=== PATIENT | female | born 1955 | race Caucasian/White ===

== ENCOUNTER 2021-08-08 00:28 | Day surgery (SDC) | payer MEDICARE, SELFPAY ==
[2021-07-28 13:05] VITALS: BMI 26.6
[2021-08-08 06:23] VITALS: BP 136/75; PULSE 83; RESP 20; TEMP 37; O2SAT 98; BMI 27.3
[2021-08-08] MEDS: LACTATED RINGERS 1,000 ML 150 ML IV CONT (06:33)
--- NOTE | 2021-08-08 07:08 | WPDANESEPPF ---
Anes - Initial Pre Proc Eval Procedure: Operation Date: 08/08/21 07:30 Proposed Procedures p Screening Colonoscopy - Joseph Carter MD Date/Time: 08/08/21 07:08 Surgeon: Joseph Carter MD Pre Op Diagnosis: neoplasm screening Patient Data Age: 66 Gender: F Height: 1.68 m Weight: 76.9 kg Last Vital Signs Temp 98.6 F 08/08/21 06:23 Pulse 83 08/08/21 06:23 Resp 20 08/08/21 06:23 BP 136/75 08/08/21 06:23 Pulse Ox 98 08/08/21 06:23 Allergies Allergy/AdvReac Type Severity Reaction Status Date / Time Wunzcqe-Ugf-Ejn Reductase Allergy Severe Muscle Pain Verified 08/08/21 06:21 Inhibitor vancomycin Allergy Intermediate Swelling Verified 08/08/21 06:21 Home Medications Medication Instructions Recorded Confirmed Type coenzyme Q10 200 mg capsule 200 mg PO DAILY 04/14/21 07/28/21 History cranberry 400 mg capsule 400 mg PO DAILY 04/14/21 07/28/21 History omega-3 fatty acids 1,000 mg 2,000 mg PO DAILY 04/14/21 07/28/21 History capsule valsartan 160 mg tablet 160 mg PO DAILY #90 tablet 04/14/21 07/28/21 Rx zinc 15 mg tablet 15 mg PO DAILY 04/14/21 07/28/21 History sodium,potassium,mag sulfates 17.5 See Rx Instructions PO .COMPLEX 07/10/21 07/28/21 Rx gram-3.13 gram-1.6 gram oral soln #354 ml Metamucil Fiber Thin 2 PO DAILY 07/28/21 History ascorbic acid (vitamin C) [Vitamin 1 g PO DAILY 07/28/21 07/28/21 History C] tu-rb-dxaf-FA-Ca carb-vit K 1 tablet PO DAILY 07/28/21 07/28/21 History [Women's Multivitamin] psyllium husk (with sugar) 2 wafer PO DAILY 07/28/21 07/28/21 History [Metamucil Fiber Thin] vitamin B complex [B 1 tablet PO DAILY 07/28/21 07/28/21 History Complex-Vitamin B12] vitamin K2 120 mcg PO DAILY 07/28/21 07/28/21 History Patient hx anesthesia problems: none Family hx anesthesia problems: none PMFSH Past Medical History Medical History (Updated 08/08/21 @ 07:09 by Jelani Feliz MD) Essential (primary) hypertension Hyperlipidemia Family History Family History Father Hypertension Family history of Alzheimer's disease Family history of chronic obstructive pulmonary disease Family history of macular degeneration Grandparent Family history of malignant neoplasm of breast Mother Hypertension Family history of Alzheimer's disease Family history of osteoporosis Sibling Hypertension Family history of cardiovascular disease Family history of lung cancer Other Diabetes mellitus Social History Social History Smoking status: Never smoker Alcohol intake: current Alcohol use details: rarely Living arrangements: with family Spiritual care concerns: No Anes - Eval Final PreProcedure Day of Procedure 08/08/21 07:08 Patient weight: normal Heart: regular rate and rhythm Lungs: clear to auscultation Airway: Mallampati scale class II Neurological: alert and oriented Last oral intake: >/= 8 hours ASA classification: II Emergent: no Anesthetic plan: proceed Anesthesia type and monitoring: general GIVS and standard monitoring Informed Consent: The patient's anesthetic plan and its attendant risks and benefits were discussed with the patient/family/POA. Questions were solicited and answers provided to the satisfaction of the patient/family/POA.
--- NOTE | 2021-08-08 07:16 | WPDGICN ---
Assessment and Plan Assessment and plan (1) Encounter for screening colonoscopy: Code(s): Z12.11 - Encounter for screening for malignant neoplasm of colon Status: Acute Assessment and Plan: Screening colonoscopy advised today because of patient's age. High-fiber diet advised. Further recommendations will be given after endoscopy. GI Consult Note Consult date/time: 08/08/21 07:16 HPI: Sallie Rivera is a 66 year old female Presents for screening colonoscopy. Patient reports that her weight appetite bowel movements are normal. She does notice occasional rectal discomfort attributed to hemorrhoids. Patient has intermittent left lower quadrant pain. She has a distant history of diverticulitis and feels this pain is similar but is very brief typically. Patient denies any blood in her stools. In general her bowel habits are regular. Family history is noncontributory. Review of Systems Review of Systems: All systems reviewed & are unremarkable except as noted in HPI and below PMFSH Past Medical History Medical History (Updated 08/08/21 @ 07:18 by Joseph Carter MD) Essential (primary) hypertension Hyperlipidemia Family History Family History Father Hypertension Family history of Alzheimer's disease Family history of chronic obstructive pulmonary disease Family history of macular degeneration Grandparent Family history of malignant neoplasm of breast Mother Hypertension Family history of Alzheimer's disease Family history of osteoporosis Sibling Hypertension Family history of cardiovascular disease Family history of lung cancer Other Diabetes mellitus Social History Social History Smoking status: Never smoker Alcohol intake: current Alcohol use details: rarely Living arrangements: with family Spiritual care concerns: No Meds Home Medications and Allergies Home Medications Medication Instructions Recorded Confirmed Type coenzyme Q10 200 mg capsule 200 mg PO DAILY 04/14/21 07/28/21 History cranberry 400 mg capsule 400 mg PO DAILY 04/14/21 07/28/21 History omega-3 fatty acids 1,000 mg 2,000 mg PO DAILY 04/14/21 07/28/21 History capsule valsartan 160 mg tablet 160 mg PO DAILY #90 tablet 04/14/21 07/28/21 Rx zinc 15 mg tablet 15 mg PO DAILY 04/14/21 07/28/21 History sodium,potassium,mag sulfates 17.5 See Rx Instructions PO .COMPLEX 07/10/21 07/28/21 Rx gram-3.13 gram-1.6 gram oral soln #354 ml Metamucil Fiber Thin 2 PO DAILY 07/28/21 History ascorbic acid (vitamin C) [Vitamin 1 g PO DAILY 07/28/21 07/28/21 History C] dk-sr-vvpi-FA-Ca carb-vit K 1 tablet PO DAILY 07/28/21 07/28/21 History [Women's Multivitamin] psyllium husk (with sugar) 2 wafer PO DAILY 07/28/21 07/28/21 History [Metamucil Fiber Thin] vitamin B complex [B 1 tablet PO DAILY 07/28/21 07/28/21 History Complex-Vitamin B12] vitamin K2 120 mcg PO DAILY 07/28/21 07/28/21 History Allergies Allergy/AdvReac Type Severity Reaction Status Date / Time Rydfsmq-Jsw-Drw Reductase Allergy Severe Muscle Pain Verified 08/08/21 06:21 Inhibitor vancomycin Allergy Intermediate Swelling Verified 08/08/21 06:21 Vital Signs Vital Signs - 24 hr 08/08/21 06:23 Temperature 98.6 F Pulse Rate 83 Respiratory Rate 20 Blood Pressure 136/75 Pulse Oximetry 98 Exam Narrative: Physical exam reveals patient to be alert. Vital signs stable. HEENT exam is unremarkable. Patient is anicteric. Lungs are clear to auscultation and percussion. Heart is without murmur or extra sounds. Abdominal exam bowel sounds are present soft nontender with no organomegaly. Digital external rectal exam is normal.
[2021-08-08 07:47] VITALS: BP 116/71; PULSE 69; RESP 19; O2SAT 99
[2021-08-08 07:57] VITALS: BP 134/80; PULSE 65; RESP 17; O2SAT 100
[2021-08-08 08:07] VITALS: BP 153/97; PULSE 69; RESP 18; O2SAT 100
== END 2021-08-08 08:10 | disposition home or self-care (01) ==
PROVIDERS: PCP Internal Medicine; Visit Provider Internal Medicine Gastroenterology
PROC: 0DJD8ZZ Inspection of Lower Intestinal Tract, Via Natural or Artificial Opening Endoscopic (ICD-10-PCS; CPT 45378; principal; 2021-08-08 07:30)
DX: Z12.11 Encounter for screening for malignant neoplasm of colon (principal); K64.8 Other hemorrhoids; K57.30 Diverticulosis of large intestine without perforation or abscess without bleeding; I10 Essential (primary) hypertension; E78.5 Hyperlipidemia, unspecified; R10.32 Left lower quadrant pain
CPT/HCPCS: G0121; J2001; J2704; J7120

== ENCOUNTER → 2021-12-21 16:46 | Outpatient (CLI) | payer MEDICARE, SELFPAY ==
--- NOTE | ~2021-12-21 | XR_ITS ---
XR hand LT min 3V DATE: 12/21/2021 17:03 INDICATION: Osteoarthritis TECHNIQUE: 3 views COMPARISON: None FINDINGS: There is osteopenia. There is polyarticular osteoarthritis, including first carpometacarpal joint and particularly the int erphalangeal joints. There is fusion at the distal interphalangeal joint of the fourth DIP joint. No fracture or dislocation, periosteal reaction or bone destruction. IMPRESSION: Polyarticular osteoarthritis Osteopenia Reviewed, dictated and finalized at location A. R STRAINER
--- NOTE | ~2021-12-21 | XR_ITS ---
XR hand RT min 3V DATE: 12/21/2021 17:03 INDICATION: Osteoarthritis TECHNIQUE: 3 views COMPARISON: None FINDINGS: There is diffuse osteopenia. There is osteoarthritis at the first carpometacarpal joint and particularly severe at multiple interp halangeal joints. No fracture or dislocation, periosteal reaction or bone destruction. IMPRESSION: Osteopenia Polyarticular osteoarthritis Reviewed, dictated and finalized at location A. ERAGE COORDINATOR
== END ==
PROVIDERS: PCP Internal Medicine; Visit Provider Internal Medicine
DX: M19.041 Primary osteoarthritis, right hand (principal); M19.042 Primary osteoarthritis, left hand; M85.841 Other specified disorders of bone density and structure, right hand; M85.842 Other specified disorders of bone density and structure, left hand
CPT/HCPCS: 73130

== ENCOUNTER 2022-02-15 10:00 | Outpatient (RCR) | payer MEDICARE, SELFPAY ==
--- NOTE | 2022-01-19 12:00 | OTOPEVAL ---
OCCUPATIONAL THERAPY INITIAL EVALUATION REPORT 01/19/22 Thank you for referring Sallie Rivera to [facility].? The patient is scheduled to be seen for therapy? 1-2x/week for 4 weeks. Please review, sign, date and return this plan of care CALEB. I agree with and certify that the following plan of care is medically necessary. Referring Physician Date Referring Provider: DO Linsey De JesusOT Outpatient Evaluation Start: 01/19/22 10:35 Therapy Assessment Status Assessment Status Assessment Status Evaluation Outpatient Past Medical History Neurological History Hx Neurological Disorders No Significant History Cardiovascular History Hx Hypercholesterolemia Yes Hx Hypertension Yes Respiratory History Hx Respiratory Disorders No Significant History Gastrointestinal History Hx Diverticulosis Yes Hx Hernia Yes: Umbilical hernia repair Genitourinary History Hx Kidney Stones Yes Musculoskeletal History Hx Spinal Surgery Yes: C6 cadaver bone, Micro- lumbar Discectomy L5-S1 Hematological History Hx Hematological Disorders No Significant History Endocrine History Hx Endocrine Disorders No Significant History HEENT History Hx Cataracts Yes: left eye Hx Eye Surgery Yes: right cataract removal Integumentary History Hx Skin Disorders No Significant History Reproductive History Hx Reproductive Disorders No Significant History Psychosocial History Hx Psychiatric Disorders No Significant History Pain History History of Any Previous or Ongoing No Significant History Instance of Pain Anesthesia History Hx Post-Op Nausea/Vomiting Yes Evaluation Information Problem Diagnosis Bilateral hand pain, OA Subjective Information Sallie reports difficulties Query Text:As Reported By Patient/ with opening jars, holding Family items in her hands, holding her grandchildren's hands, lifting pots/pans, getting bowls out of the cabinet, etc. Prior Level of Function Activity Level (Last 3 Months) Occupation Retired from [employer] Hand [employer] Right Cooking Yes Cleaning Yes Laundry Yes Shopping Yes Driving Yes Pain Assessment Timing of Pain Assessment Timing of Pain Assessment Assessment Self Report Self Report Pain Level 0 Pain Score Pain Score 0: Self Report Upper Extremity Range of Motion Finger Range of Motion Left Finger Range of Motion Comments MCPs of II-V are WNL PIPs of II-V are WNL, except
--- NOTE | 2022-02-15 11:08 | OTOPEVAL ---
OCCUPATIONAL THERAPY RE-EVALUATION AND DISCHARGE SUMMARY 02/15/22 Sallie is a 66 year-old, right handed female who was referred to outpatient hand therapy with dx of OA of her hands. X-rays are indicative of arthritic changes and she actually has a fused joint at the DIP of her left ring finger. OT sessions have been focused on education on her diagnosis, joint protection strategies, and adaptive techniques to reduce further joint inflammation and degenerative changes. She has been completing gentle active ROM and gentle meat cutting teacher strengthening also. she has made improvements with functional ROM and meat cutting teacher strength as well as improved knowledge of her dx and joint protection techniques. At this time she is independent with all materials and ready for discharge. Thank you for referring Sallie Rivera to [facility][Note 3].?Please review, sign, date and return this D/C Note CALEB. I agree with and certify that the following plan of care is medically necessary. Referring Physician Date Referring Provider: Micheal Pruitt DO *OT Outpatient Re-Evaluation Start: 01/19/22 10:35 Diagnosis Bilateral hand pain Subjective Information Sallie reports difficulties Query Text:As Reported By Patient/ with opening jars, holding Family items in her hands, holding her grandchildren's hands, lifting pots/pans, getting bowls out of the cabinet, etc. She has been incorporating adaptive techniques and joint protection techniques to complete these tasks. She continues to have joint stiffness and pain regularly. Pain Assessment Timing of Pain Assessment Timing of Pain Assessment Re-assessment Pain Scale Pain Scale Used Numeric (1 - 10) Self Report Pain Assessment Bilateral Hand(s) Reported Pain Level 0 Lowest Pain Intensity 0 Greatest Pain Intensity 3 Pain Score Pain Score 0: Self Report Upper Extremity Range of Motion Finger Range of Motion Left Finger Range of Motion Comments MCPs of II-V are WNL PIPs of II-V are WNL, except pinky, measuring at 60* DIP measurements - II: 65* (improved from 60*) III: 65* (improved from 60*) IV: 0* - unchanged V: 60* (improved from 50*) DIP of ring finger has no passive motion. Hard end feel. X-rays show fused joint. Right Finger Range of Motion Comments MCPs of II-V are WNL PIPs of II-V are WNL, except pinky, measuring at 75* (this improved from 65*
== END 2022-02-15 15:47 | disposition home or self-care (01) ==
LOC: ANHOT 10:00
PROVIDERS: PCP Internal Medicine; Referring Provider Internal Medicine; Visit Provider Internal Medicine
DX: M85.80 Other specified disorders of bone density and structure, unspecified site (principal)
CPT/HCPCS: 97018; 97110; 97140; 97166; 97530

== ENCOUNTER → 2023-04-19 12:02 | Outpatient (CLI) | payer MEDICARE, SELFPAY ==
--- NOTE | ~2023-04-19 | XR_ITS ---
PA, oblique, and lateral views of the left fourth finger CLINICAL HISTORY: Pain COMPARISON: 12/21/2021 FINDINGS: No acute fracture identified. There is probable ankylosis/fusion across the fourth DIP join t. There is moderate to advanced degenerative change of the fourth PIP joint. Soft tissues are unrema rkable. IMPRESSION: No acute abnormality seen. Probable ankylosis/fusion across the fourth DIP joint. Moderate to advanced degenerative change of the fourth PIP joint. Reviewed, dictated and finalized at location .
== END ==
PROVIDERS: PCP Family Medicine; Visit Provider Family Medicine
DX: M19.042 Primary osteoarthritis, left hand (principal)
CPT/HCPCS: 73140

== ENCOUNTER 2023-08-08 07:56 | Outpatient (CLI) | payer MEDICARE, SELFPAY ==
--- NOTE | ~2023-08-08 | US_ITS ---
US abdomen limited INDICATION: Elevated transaminase PROCEDURE: Realtime right upper abdominal ultrasound. COMPARISON: No prior studies for comparison. FINDINGS: The pancreas is normal without focal mass or pancreatic ductal dilation. There is a 3.5 cm liver cyst. There is fatty infiltration of the liver. There is normal directional flow in the pj l vein. The gallbladder is normal without stones, gallbladder wall thickening or pericholecystic fluid. Comm on bile duct measures 3 mm. No sonographic Nelson's sign. IMPRESSION: 1: Hepatic steatosis with 3.5 cm liver cyst. Reviewed, dictated and finalized at location L.
== END 2023-08-08 07:57 | disposition home or self-care (01) ==
LOC: ANHIMG 08:00
PROVIDERS: PCP Family Medicine; Visit Provider Family Medicine
DX: R74.01 Elevation of levels of liver transaminase levels (principal); K76.0 Fatty (change of) liver, not elsewhere classified
CPT/HCPCS: 76705

== ENCOUNTER 2023-08-20 02:48 | Day surgery (SDC) | payer MEDICARE, SELFPAY ==
[2023-08-05 14:17] VITALS: BMI 32.0
[2023-08-20 07:57] VITALS: BP 174/85; PULSE 81; RESP 20; TEMP 36.3; O2SAT 98; BMI 32.1
[2023-08-20] MEDS: LACTATED RINGERS 1,000 ML 150 ML IV CONT (08:02)
--- NOTE | 2023-08-20 08:32 | PM.HPGS ---
History of Present Illness History of Present Illness Consent: Risks, benefits, and alternatives have been discussed and questions answered. Patient agrees to proceed with procedure. Chief complaint: dysphagia Narrative: Sallie Rivera is a 68 year old female Presents for EGD. Over the last 3-4 months patient has noted solid foods catching in the throat. She will have to regurgitate the food prior to being able to swallow any additional intake. She notes this with shrimp and chicken. Patient denies any specific heartburn but may have occasional regurgitation. She has no specific pain. She denies any weight loss or bleeding. Family history noncontributory. Patient presents today for EGD. Review of Systems Review of Systems: Review of systems noncontributory. [facility] Past Medical History Medical History COVID-19 Essential (primary) hypertension Hyperlipidemia Family History Family History Father Hypertension Family history of Alzheimer's disease Family history of chronic obstructive pulmonary disease Family history of macular degeneration Heart disease Grandparent Family history of malignant neoplasm of breast Mother Hypertension Family history of Alzheimer's disease Family history of osteoporosis Thyroid disease Sibling Hypertension Family history of cardiovascular disease Family history of lung cancer Liver cancer Sibling Diabetes mellitus Social History Social History Smoking status: Never smoker Second hand tobacco smoke exposure: No Alcohol intake: current Alcohol use details: rarely Substance use: never Substance use type: does not use Lack of Transportation: No Lack of Food: Never True Current Housing: I Have Housing Concerned About Future Housing: No Difficulty Paying Gas/Electric Bills: No Difficulty Paying for Meds: No Currently Unemployed: No Education: Bachelor's Degree Difficulty w/ Childcare or Family Care: No Living arrangements: with family Spiritual care concerns: No Meds Home Medications and Allergies Home Medications Medication Instructions Recorded Confirmed Type coenzyme Q10 200 mg capsule 200 mg PO DAILY 04/14/21 08/05/23 History cranberry 400 mg capsule 400 mg PO DAILY 04/14/21 08/05/23 History omega-3 fatty acids 1,000 mg 2,000 mg PO DAILY 04/14/21 08/05/23 History capsule (Fish Oil Concentrate) ascorbic acid (vitamin C) 1,000 mg 1 g PO DAILY 07/28/21 08/05/23 History tablet (Vitamin C) vitamin K2 100 mcg capsule 120 mcg PO DAILY 07/28/21 08/05/23 History biotin 5,000 mcg disintegrating 5,000 mcg PO DAILY 11/09/21 08/05/23 History tablet cholecalciferol (vitamin D3) 100 4,200 unit PO DAILY 11/09/21 08/05/23 History mcg (4,000 unit) tablet multivitamin 1 tablet PO DAILY 11/09/21 08/05/23 History plant stanol hill 450 mg tablet 800 mg PO DAILY 11/09/21 12/20/22 History zinc 15 mg tablet 15 mg PO DAILY PRN Sickness 12/20/22 08/05/23 History valsartan 160 mg tablet See Rx Instructions .Route 03/06/23 08/05/23 Rx .COMPLEX #90 tabs Allergies Allergy/AdvReac Type Severity Reaction Status Date / Time Trydfho-EEJ-DdS Reductase Allergy Severe Muscle Pain Verified 08/20/23 07:55 Inhibitor [Dkmaxtg-Avf-Kfm Reductase Inhibitor] vancomycin Allergy Intermediate Swelling Verified 08/20/23 07:55 Vital Signs Vital Signs - 24 hr 08/20/23 07:57 Temperature 97.4 F L Pulse Rate 81 Respiratory Rate 20 Blood Pressure 174/85 H Pulse Oximetry 98 Oxygen Delivery Room Air Exam Narrative: Physical exam reveals patient to be alert. Vital signs stable. HEENT exam is unremarkable. Patient is anicteric. Lungs are clear to auscultation and percussion. Heart is without murmur or extra sounds. Abdomin
--- NOTE | 2023-08-20 08:46 | WPDANESEPPF ---
Anes - Initial Pre Proc Eval Procedure: Operation Date: 08/20/23 09:00 Proposed Procedures p Esophagogastroduodenoscopy - Joseph Carter MD Date/Time: 08/20/23 08:46 Surgeon: Joseph Carter MD Pre Op Diagnosis: dysphagia Patient Data Age: 68 Gender: F Height: 1.68 m Weight: 90.1 kg Last Vital Signs Temp 97.4 F L 08/20/23 07:57 Pulse 81 08/20/23 07:57 Resp 20 08/20/23 07:57 BP 174/85 H 08/20/23 07:57 Pulse Ox 98 08/20/23 07:57 O2 Del Method Room Air 08/20/23 07:57 Allergies Allergy/AdvReac Type Severity Reaction Status Date / Time Azuesdy-VKL-DxA Reductase Allergy Severe Muscle Pain Verified 08/20/23 07:55 Inhibitor [Pdoesvs-Pcy-Cce Reductase Inhibitor] vancomycin Allergy Intermediate Swelling Verified 08/20/23 07:55 Home Medications Medication Instructions Recorded Confirmed Type coenzyme Q10 200 mg capsule 200 mg PO DAILY 04/14/21 08/05/23 History cranberry 400 mg capsule 400 mg PO DAILY 04/14/21 08/05/23 History omega-3 fatty acids 1,000 mg 2,000 mg PO DAILY 04/14/21 08/05/23 History capsule (Fish Oil Concentrate) ascorbic acid (vitamin C) 1,000 mg 1 g PO DAILY 07/28/21 08/05/23 History tablet (Vitamin C) vitamin K2 100 mcg capsule 120 mcg PO DAILY 07/28/21 08/05/23 History biotin 5,000 mcg disintegrating 5,000 mcg PO DAILY 11/09/21 08/05/23 History tablet cholecalciferol (vitamin D3) 100 4,200 unit PO DAILY 11/09/21 08/05/23 History mcg (4,000 unit) tablet multivitamin 1 tablet PO DAILY 11/09/21 08/05/23 History plant stanol hill 450 mg tablet 800 mg PO DAILY 11/09/21 12/20/22 History zinc 15 mg tablet 15 mg PO DAILY PRN Sickness 12/20/22 08/05/23 History valsartan 160 mg tablet See Rx Instructions .Route 03/06/23 08/05/23 Rx .COMPLEX #90 tabs Patient hx anesthesia problems: none Family hx anesthesia problems: none Results Review: All pre-operative results and documents have been reviewed as part of the pre-operative evaluation. [facility] Past Medical History Medical History COVID-19 Essential (primary) hypertension Hyperlipidemia Family History Family History Father Hypertension Family history of Alzheimer's disease Family history of chronic obstructive pulmonary disease Family history of macular degeneration Heart disease Grandparent Family history of malignant neoplasm of breast Mother Hypertension Family history of Alzheimer's disease Family history of osteoporosis Thyroid disease Sibling Hypertension Family history of cardiovascular disease Family history of lung cancer Liver cancer Sibling Diabetes mellitus Social History Social History Smoking status: Never smoker Second hand tobacco smoke exposure: No Alcohol intake: current Alcohol use details: rarely Substance use: never Substance use type: does not use Lack of Transportation: No Lack of Food: Never True Current Housing: I Have Housing Concerned About Future Housing: No Difficulty Paying Gas/Electric Bills: No Difficulty Paying for Meds: No Currently Unemployed: No Education: Bachelor's Degree Difficulty w/ Childcare or Family Care: No Living arrangements: with family Spiritual care concerns: No Anes - Eval Final PreProcedure Day of Procedure 08/20/23 08:46 Patient weight: obese Heart: regular rate and rhythm Lungs: clear to auscultation Airway: Mallampati scale class II Neurological: alert and oriented Last oral intake: >/= 8 hours ASA classification: II Emergent: no Anesthetic plan: proceed Anesthesia type and monitoring: general GIVS and standard monitoring Results Review: All pre-operative results and documents have been reviewed as part of the pre-operative evaluation. Informed Consent: The patient's an
[2023-08-20 09:50] VITALS: BP 146/90; PULSE 78; RESP 22; O2SAT 97
[2023-08-20 10:00] VITALS: BP 147/93; PULSE 74; RESP 23; O2SAT 98
[2023-08-20 10:10] VITALS: BP 147/93; PULSE 78; RESP 22; O2SAT 98
== END 2023-08-20 10:24 | disposition home or self-care (01) ==
PROVIDERS: PCP Family Medicine; Visit Provider Internal Medicine Gastroenterology
PROC: 0DJ08ZZ Inspection of Upper Intestinal Tract, Via Natural or Artificial Opening Endoscopic (ICD-10-PCS; CPT 43235; principal; 2023-08-20 09:00)
DX: Q39.4 Esophageal web (principal); I10 Essential (primary) hypertension; E78.5 Hyperlipidemia, unspecified; E66.9 Obesity, unspecified; Z68.32 Body mass index [BMI] 32.0-32.9, adult
CPT/HCPCS: 43450; 43235; J2001; J2704; J7120

== ENCOUNTER 2024-03-03 07:49 | Outpatient (CLI) | payer MEDICARE, SELFPAY ==
--- NOTE | ~2024-03-03 | XR_ITS ---
Clinical Indication: Cough PA and lateral views of the chest: Comparison: None Findings: The lungs are clear, without evidence of focal consolidation or pleural effusion. Cardiome diastinal silhouette is within normal limits. Bones and soft tissues are unremarkable. Impression: Normal chest. Reviewed, dictated and finalized at location . Impression: Normal chest.
--- NOTE | ~2024-03-03 | US_ITS ---
Limited Abdominal Sonogram: Real-time sonographic imaging of the right upper quadrant was performed. Clinical History: Right upper quadrant pain Findings: The liver appears echogenic, with no evidence of mass lesion or bile duct dilatation. Main portal vein demonstrates normal direction of flow. The gallbladder is well distended, and appears no rmal with no evidence of gallstone or wall thickening. The common bile duct measures 3 mm. The visua lized pancreas, aorta, and IVC are unremarkable. Right kidney measures 9.2 cm in length, without hydr onephrosis. Impression: Diffuse fatty infiltration of the liver. Reviewed, dictated and finalized at location M. Impression: Diffuse fatty infiltration of the liver.
== END 2024-03-03 07:50 ==
LOC: MICIMG 07:51
PROVIDERS: PCP Family Medicine; Visit Provider Nurse Practitioner Family
DX: R10.11 Right upper quadrant pain (principal); R19.8 Other specified symptoms and signs involving the digestive system and abdomen; R05.3 Chronic cough; R07.9 Chest pain, unspecified
CPT/HCPCS: 71046; 76705

== ENCOUNTER 2024-03-13 07:28 | Outpatient (CLI) | payer MEDICARE, SELFPAY ==
--- NOTE | ~2024-03-13 | CT_ITS ---
Clinical Indication: Pain CT Scan of the Chest and Abdomen with Contrast: Technique: Contiguous sections were acquired throughout the chest and abdomen after intravenous admin istration of 100 cc of Omnipaque 350. Dose reduction technique was used on this scan by utilizing au tomated exposure control and iterative reconstruction technique. The dose-length product (DLP) was 60 7.07 mGy-cm. Findings: There is no evidence of any significant mediastinal, hilar or axillary lymphadenopathy. The mediastin al soft tissues and vascular structures appear normal. There is no evidence of pleural or pericardial effusion. The lungs are clear, aside from calcified right basilar granuloma. The liver, spleen, pancreas, gallbladder, adrenals and kidneys are within normal limits. There are at herosclerotic calcifications of the aorta. No lymphadenopathy. Visual is bowel loops are unremarkable.. No ascites. Impression: No significant abnormalities seen. Reviewed, dictated and finalized at [facility]. Impression: No significant abnormalities seen.
== END 2024-03-13 07:29 | disposition home or self-care (01) ==
LOC: ANHIMG 07:29
PROVIDERS: PCP Family Medicine; Visit Provider Nurse Practitioner Family
DX: R10.11 Right upper quadrant pain (principal); R10.33 Periumbilical pain; R07.1 Chest pain on breathing
CPT/HCPCS: 71260; 74160; Q9967

== ENCOUNTER 2024-03-25 13:25 | Outpatient (CLI) | payer MEDICARE, SELFPAY ==
--- NOTE | ~2024-03-25 | US_ITS ---
EXAMINATION: US venous doppler [facility] DATE: 03/25/2024 14:20 INDICATION: Left lower limb pain. TECHNIQUE: Grayscale ultrasound images without and with compression and Doppler ultrasound images of the left lower extremity veins were obtained. COMPARISON: None. FINDINGS: The visualized portions of left common femoral vein, profunda (deep) femoral vein, femoral vein, popl iteal vein, peroneal veins, posterior tibial veins, and greater saphenous vein outflow are patent. IMPRESSION: 1. No deep venous thrombosis. Reviewed, dictated and finalized at location A.
== END 2024-03-25 13:26 | disposition home or self-care (01) ==
PROVIDERS: PCP Family Medicine; Visit Provider Nurse Practitioner
DX: M79.605 Pain in left leg (principal)
CPT/HCPCS: 93971

== ENCOUNTER 2024-04-16 10:44 | Outpatient (CLI) | payer MEDICARE, SELFPAY ==
--- NOTE | ~2024-04-16 | XR_ITS ---
XR sacroiliac joints min 3V DATE: 04/16/2024 11:51 INDICATION: Pain. Arthralgia. TECHNIQUE: AP and bilateral oblique views COMPARISON: None FINDINGS: There is severe degenerative disc disease at L5-S1. Normal alignment at the sacroiliac joints. No erosive change or ankylosis of the sacroiliac joints. Osteopenia. IMPRESSION: Osteopenia 3. Degenerative disc disease at L5-S1 Unremarkable sacroiliac joints Reviewed, dictated and finalized at [facility]. Reviewed, dictated and finalized at [facility].
--- NOTE | ~2024-04-16 | XR_ITS ---
XR hand BI arthritis min 3V DATE: 04/16/2024 11:51 INDICATION: Arthralgia, hair loss, kidney stones TECHNIQUE: 4 views of each hand COMPARISON: None FINDINGS: There is bilateral osteoarthritis involving the first carpometacarpal and multiple interpha langeal joints of each hand. Osteopenia. No erosive change or chondrocalcinosis. No fracture, dislocation, periosteal reaction or bone destruc tion is detected. IMPRESSION: Polyarticular osteoarthritis involving primarily the first carpometacarpal and interphala ngeal joints Reviewed, dictated and finalized at location [facility]. IMPRESSION: Polyarticular osteoarthritis involving primarily the first carpomet acarpal and interphalangeal joints
--- NOTE | ~2024-04-16 | XR_ITS ---
Left foot Technique: AP, oblique, and lateral views were obtained. Clinical History: Arthralgia Findings: No acute fracture or dislocation is seen. Osseous alignment is anatomic. Joint spaces are p reserved without erosive or degenerative change. Soft tissues are unremarkable. Impression: Unremarkable left foot radiographs. Reviewed, dictated and finalized at [facility]. Impression: Unremarkable left foot radiographs.
--- NOTE | ~2024-04-16 | XR_ITS ---
Lumbosacral Spine: AP and lateral views Clinical History: Pain Findings: The normal lordotic curve is maintained. The vertebral bodies and posterior elements are i ntact. There is advanced degenerative disc narrowing at L5-S1. The remaining intervertebral disc spac es are preserved. There is moderate facet arthropathy L4-L5, advanced facet arthropathy at L5-S1. The sacroiliac joints are normally outlined. Impression: Moderate degenerative spondylosis of the lower lumbar spine, as detailed above. Reviewed, dictated and finalized at location [facility]. Impression: Moderate degenerative spondylosis of the lower lumbar spine, as detailed above.
--- NOTE | ~2024-04-16 | XR_ITS ---
Cervical Spine: AP, lateral, open-mouth views Clinical History: Pain Findings: The normal lordotic curve is maintained. Minimal grade 1 anterolisthesis of C3 over C4 note d. Minimal grade I anterolisthesis of C4-C5 noted. There is anterior fusion from C6 to C7. There are mild degenerative disc changes and moderate facet joint degenerative changes. Pre-vertebral soft tiss ues are unremarkable. Impression: [id number] degenerative spondylosis. Minimal grade 1 anterolisthesis of C3 over C4, and of C4 over C5. Anterior fusion from C6 to C7. Reviewed, dictated and finalized at location . Impression: [id number] degenerative spondylosis. Minimal grade 1 anterolisthesis of C3 over C4, and of C4 over C5. Anterior fusion from C6 to C7.
--- NOTE | ~2024-04-16 | XR_ITS ---
Right foot Technique: AP, oblique, and lateral views were obtained. Clinical History: Arthralgia Findings: No acute fracture or dislocation is seen. Osseous alignment is anatomic. There is mild dege nerative changes at the first MTP joint and interphalangeal joints of the toes. Soft tissues are unre markable. Impression: Mild degenerative changes, as above. Reviewed, dictated and finalized at location . Impression: Mild degenerative changes, as above.
== END 2024-04-16 10:45 ==
PROVIDERS: PCP Family Medicine; Visit Provider Physician Assistant Medical
DX: M25.50 Pain in unspecified joint (principal); Z79.899 Other long term (current) drug therapy; L65.9 Nonscarring hair loss, unspecified; N20.0 Calculus of kidney; M85.88 Other specified disorders of bone density and structure, other site; M51.37 Other intervertebral disc degeneration, lumbosacral region; M19.041 Primary osteoarthritis, right hand; M19.042 Primary osteoarthritis, left hand; M47.896 Other spondylosis, lumbar region; M19.071 Primary osteoarthritis, right ankle and foot; Z98.1 Arthrodesis status; M47.892 Other spondylosis, cervical region
CPT/HCPCS: 72040; 72100; 72202; 73130; 73630

== ENCOUNTER 2025-02-02 09:26 | Outpatient (CLI) | payer MEDICARE, SELFPAY ==
--- NOTE | ~2025-02-02 | XR_ITS ---
XR abdomen obstructive series Ordering provider: Octavio Daly MD History: . R10.32 - Left lower quadrant pain . Comparison: None. FINDINGS: BOWEL: Nonobstructive bowel gas pattern. ORGANOMEGALY: None. SIGNIFICANT PATHOLOGIC CALCIFICATIONS: None. OTHER: No free air is seen under the diaphragm. Degenerative changes of the spine. Bilateral hip mild to moderate osteoarthritic changes. IMPRESSION: NO ACUTE ABDOMINAL FINDINGS. Reviewed, dictated and finalized at location [facility].
== END 2025-02-02 09:27 | disposition home or self-care (01) ==
LOC: MICIMG 09:28
PROVIDERS: PCP Family Medicine; Visit Provider Family Medicine
DX: R10.32 Left lower quadrant pain (principal)
CPT/HCPCS: 74019